=== PATIENT | male | born 1965 | race Caucasian/White ===

== ENCOUNTER 2019-05-09 19:58 | Emergency (ER) | payer SELFPAY ==
[~2019-05-09 19:58] MED LIST: Iopamidol 370 76% 100 ML VIAL ONE
[2019-05-09 20:11] LABS: #Basophils 0.1 thou/uL (0.0-0.2); #Eosinphils 0.2 thou/uL (0.0-0.7); #Monocytes 0.4 thou/uL (0.11-0.59); #Neutrophils 5.7 thou/uL (1.40-6.50); %Basophils 1.3 % (0.0-1.0); %Lymphocytes 23.6 % (21.0-51.0); %Monocytes 4.8 % (0.0-10.0); %Neutrophils 68.3 % (42.0-75.0); Hemoglobin 15.3 g/dL (14.0-18.0); Mean Corpuscular HGB CONC 31.3 g/dL (32.0-36.0); Mean Corpuscular Hemoglobin 28.5 pg (27.0-31.0); Mean Corpuscular Volume 90.9 fL (78.0-98.0); Mean Platelet Volume 9.8 fL (7.4-10.4); Platelet Count 265 thou/uL (130-400); RBC Distribution Width 13.3 % (11.5-14.5); Red Blood Cell (RBC) Count 5.38 mill/uL (4.70-6.10); White Blood Cell (WBC) Count 8.4 thou/uL (4.8-10.8)
[2019-05-09 20:14] LABS: INR-International Normal Ratio 0.9; PTT 23.6 SEC (22.9-36.1)
[2019-05-09 20:25] LABS: ALT (SGPT) 18 U/L (8-55); AST (SGOT) 10 U/L (5-34); Albumin 4.3 g/dL (3.5-5.0); Alkaline Phosphatase 145 U/L (40-110); Anion Gap 15 mmol/L (10-20); BUN (Urea Nitrogen) 10 mg/dL (8.4-25.7); Bilirubin, Total 0.6 mg/dL (0.2-1.2); CK (CPK) 157 U/L (30-200); Calc. Creatinine Clearance 0 mL/min (70-130); Calcium 9.8 mg/dL (7.8-10.44); Carbon Dioxide 28 mmol/L (22-29); Chloride 100 mmol/L (98-107); Estimated GFR-MDRD 60; Globulin 3.4 g/dL (2.4-3.5); Glucose 534 mg/dL (70-105); Potassium 3.7 mmol/L (3.5-5.1); Protein, Total 7.7 g/dL (6.0-8.3); Sodium 139 mmol/L (136-145)
[2019-05-09] MEDS ORDERED: Insulin Regular 300 UNITS/3 ML VIAL ONE (20:32)
[2019-05-09] MEDS ORDERED: Aspirin Chewable 81 MG TAB ONE (20:32)
--- NOTE | 2019-05-09 20:35 | CT ---
CT OF BRAIN PERFORMED WITHOUT CONTRAST ENHANCEMENT: 05/09/19 HISTORY: Slurred speech and chest pain. There is some generalized ventricular and sulcal prominence. Some decreased attenuation of the perive ntricular white matter. There is no signs of intracerebral hemorrhage or extra-axial fluid collection s. The mastoid air cells and visualized sinuses are clear. IMPRESSION: No acute intracranial abnormalities. Findings telephoned to Dr. Sales at 2018 hours. POS: [facility]
[2019-05-09] MEDS ORDERED: Nitroglycerin 50 MG/250 ML BOT 250 ML ONE (20:50)
--- NOTE | 2019-05-09 21:01 | CT ---
CT ANGIOGRAM OF HEAD AND NECK PERFORMED WITH INTRAVENOUS CONTRAST ENHANCEMENT AND 3D RECONSTRUCTIONS: 05/09/19 HISTORY: Stroke alert, slurred speech. The lung apices are clear. The thyroid gland is unremarkable. No significant jugular chain adenopathy . There are some small nonspecific nodes present. The parotid and submandibular gland regions are nor mal. Parapharyngeal spaces are clear. The angiographic portion of this study yielded a good exam. 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 The vertebral arteries are essentially codominant. There is cierra e mild atherosclerotic plaque at the origin of the right internal carotid artery but no significant s tenosis by NASCET criteria. Both internal carotid arteries are significantly medially deviated. The l eft common carotid, internal and external carotid arteries also showed no evidence of any significant stenosis. CT ANGIO OF HEAD PERFORMED WITH CONTRAST WITH 3D RECONSTRUCTIONS: The anterior and middle cerebral arteries and their branches appear normal. The vertebrobasilar syste m and posterior cerebral arteries are all unremarkable. IMPRESSION: Unremarkable CT angio of the head and neck. Findings telephoned to Dr. Sales at 2046 hours. POS: [facility]
--- NOTE | 2019-05-09 21:12 | RAD ---
PORTABLE CHEST: 05/09/19 HISTORY: Chest pain. Heart size appears borderline for portable technique. Mediastinal structures are unremarkable. The sasha ngs are clear of any infiltrates. IMPRESSION: Borderline heart size. POS: [facility]
[2019-05-09] MEDS ORDERED: Nitroglycerin 2% Ointment 1 INCH/1 GM Packet ONE (21:44)
[2019-05-09 22:34] LABS: Bilirubin Negative (Negative); Blood, Urine Trace (Negative); Clarity Clear (Clear); Glucose, Urine (Dipstick) 500 mg/dL (Negative); Leukocyte Negative (Negative); Nitrite Negative (Negative); Protein, Urine (Dipstick) Negative (Neg-Trace); Urobilinogen 0.2 mg/dL (Less than 2)
[2019-05-09 22:42] LABS: RBC/HPF 0-3 HPF (0-3); Squamous Epithelial 0-3 HPF (0-3); WBC/HPF 0-3 HPF (0-3)
== END 2019-05-09 23:03 | disposition short-term general hospital (02) ==
LOC: EDBD 19:58 → BURERS 19:58
DX: I63.9 Cerebral infarction, unspecified (principal); E11.65 Type 2 diabetes mellitus with hyperglycemia; F17.220 Nicotine dependence, chewing tobacco, uncomplicated; Z79.84 Long term (current) use of oral hypoglycemic drugs
CPT/HCPCS: 36416; 70450; 70496; 70498; 71045; 80053; 81003; 81015; 82550; 83930; 84484; 85025; 85610; 85730; 93005; 94760; 96365; 96375; J1815; Q9967